=== PATIENT | female | born 1940 | race Caucasian/White ===

== ENCOUNTER 2017-06-03 20:40 | Observation (INO) | payer MEDICARE, OTHER ==
[2017-06-03 22:26] LABS: Troponin I Less than 0.010 ng/mL (< 0.028)
[2017-06-03] MEDS ORDERED: Senokot 8.6 MG TAB PO PRN (23:24)
[2017-06-03] MEDS ORDERED: Mag-Al 1200 mg/1200 mg/30 ML UDCUP PO PRN (23:24)
[2017-06-03] MEDS ORDERED: Zolpidem Tartrate 5 MG TAB PO PRN (23:24)
[2017-06-03] MEDS ORDERED: Ondansetron HCl/PF 4 MG/2 ML Vial IVP PRN (23:24)
[2017-06-03] MEDS ORDERED: Ketorolac Tromethamine 30 MG/ML VIAL IVP PRN (23:24)
[2017-06-03] MEDS ORDERED: Loperamide HCl 2 MG CAP PO PRN (23:24)
[2017-06-03] MEDS ORDERED: Milk Of Magnesia 30 ML UDCUP PO PRN (23:24)
[2017-06-03] MEDS ORDERED: Bisacodyl 10 MG SUPP PR PRN (23:24)
[2017-06-03] MEDS ORDERED: Ondansetron ODT 4 MG TAB PO PRN (23:24)
[2017-06-03] MEDS ORDERED: Acetaminophen 325 MG TAB PO PRN (23:24)
[2017-06-03 23:30] VITALS: BMI 22.1
--- NOTE | 2017-06-03 23:46 | HP ---
PRIMARY CARE PHYSICIAN: Dr. Sonia Echeverria. REASON FOR ADMISSION: Transfer from [facility] for chest pain. HISTORY OF PRESENT ILLNESS: A 76-year-old female who has history of hypertension, anxiety, depressi on, as well as chronic cervical neck pain, who initially went to [facility] for evaluatio n of her increasing neck pain, shoulder pain, and upper back pain. The patient reports that she has a neck pain and she is following Dr. Bailey Donahue in the pain clinic about 3 weeks ago, she had in jection in her cervical spine. She also had a similar injection in the past that helped significant ly, but at this time, injection did not help significantly and she was having upper neck pain and sh oulder pain and upper chest pain, that pain was bothering her and she was taking pain medication and that made her constipated. All these symptoms made her to go to the emergency room for evaluation. Today, she also experienced some mild chest tightness in the substernal area, which was about 3/10 i n intensity. There was no associated nausea, vomiting, diaphoresis, or shortness of breath. She de nied any radiation of pain. There was no relation of chest pain with food, respiration, or activity . At [facility], she was given aspirin, nitropatch, and [place]. She had routine blood te st done including EKG, everything was unremarkable. She was sent to our emergency room for evaluati on to rule out for acute coronary syndrome. This patient does not have any exertional chest pain, palpitation, or dizziness. She denies any ort hopnea, PND, or leg swelling. At [facility], EKG showed normal sinus rhythm without change from previous. She had nons pecific ST-T changes in the anterior leads. Her chest x-ray was unremarkable. REVIEW OF SYSTEMS: The following complete review of systems was negative, unless otherwise mentione d in the HPI or below: Constitutional: Weight loss or gain, ability to conduct usual activities. Skin: Rash, itching. Eyes: Double vision, pain. ENT/Mouth: Nose bleeding, neck stiffness, pain, tenderness. Cardiovascular: Palpitations, dyspnea on exertion, orthopnea. Respiratory: Shortness of breath, wheezing, cough, hemoptysis, fever or night sweats. Gastrointestinal: Poor appetite, abdominal pain, heartburn, nausea, vomiting, constipation, or diar gregor. Genitourinary: Urgency, frequency, dysuria, nocturia. Musculoskeletal: Pain, swelling. Neurologic/Psychiatric: Anxiety, depression. Allergy/Immunologic: Skin rash, bleeding tendency. Please see my HPI for pertinent positives and negatives. All other review of systems are reviewed a nd are negative except as mentioned in the HPI. EMERGENCY ROOM COURSE: Patient is given [place], nitropatch, and aspirin 324 mg at [facility] o. ALLERGIES: The patient is allergic to ANNI INHIBITOR, CODEINE, SULFATE, and SULFA DRUGS. CURRENT HOME MEDICATIONS: Premarin 1.25 mg p.o. daily, amlodipine 10 mg p.o. daily, Lexapro 10 mg p .o. daily, primidone 50 mg daily, tramadol 50 mg every 6 hourly p.r.n. PAST MEDICAL HISTORY: Hypertension and gastroesophageal reflux disease, history of ventricular tach ycardia, history of tremors on the left upper extremity. PAST SURGICAL HISTORY: Bladder surgery, hysterectomy, bladder suspension surgery. PAST PSYCHIATRIC HISTORY: Anxiety and depression. SOCIAL HISTORY: Patient was used to be drinking heavily alcohol, but now a days, she only drinks wi ne on a daily basis. She denies any smoking. She denies any other illicit drug abuse. FAMILY HISTORY: No strong family history of premature coronary artery disease, stroke, or cancer. PHYSICAL EXAMINATION: VITAL SIGNS: Currently, blood pressure 155/60, pulse 70, respiratory rate 17, temperature 98.5, sat uration 96%, weight 62.1 kilograms. GENERAL: Patient is currently alert, awake, in no obvious acute distress. HEENT: Head: Normocephalic, atraumatic. Eyes: Pupils are round, reactive to light. Extraocular muscle intact. ENT: Oropharynx within normal limits. Moist mucous membranes. No oral lesions. N o pharyngeal erythema, no exudate. NECK: Supple. Range of motion is normal. No meningeal signs of irritation. The patient does have muscle tightness in the upper neck as well as upper chest and shoulder discomfort. LUNGS: Clear t o auscultation without any rhonchi or rales. CARDIAC: S1 and S2 regular without any murmur. ABDOMEN: Soft, bowel sounds present, nontender, nondistended. No organomegaly, no mass, no suprapu bic tenderness. BACK EXAMINATION: Unremarkable, no CVA tenderness. EXTREMITIES: Upper extremities, passive movement of all joints are normal. Lower extremities, no e gagandeep, good peripheral pulsation, no calf tenderness. SKIN: No skin rash. HEMATOLOGICAL SYSTEM: No lymphadenopathy. PSYCHIATRIC: Normal affect. SIGNIFICANT LABORATORY DATA AND IMAGIN. EKG based on my review, normal sinus rhythm, nonspecific ST-T changes in the anterolateral leads . 2. Chest x-ray based on my review, no acute cardiopulmonary process. 3. CBC: WBC 9.5, hemoglobin 13.5, and platelets 372. 4. BMP: Sodium 135, potassium 4.1, chloride 100, carbon dioxide 23, BUN 15, creatinine 0.78, gluco se 115, calcium 9.1, magnesium 2.0. 5. LFTs: AST 16, ALT 16, alkaline phosphatase 55, albumin 4.0, total protein 6.9, CK-MB 1.1, tropo michael I is 0.018. BNP is 83.3. ASSESSMENT AND PLAN/IMPRESSION: 1. Chest pain. This patient's chest pain description is atypical. This patient's, most likely rodo n is related with her cervical spine arthritis. She has upper chest pain and she is also complainin g of pain in that area, most likely related with musculoskeletal etiology. This patient also does n ot want to go for any cardiac stress testing and that is why we will not perform that unless if she change her mind in the morning. We will do serial cardiac enzymes only and if her serial cardiac en zymes are negative, then we will consider discharging her home tomorrow. We will check lipid profil e for risk stratification. We will continue with aspirin 325 mg p.o. daily. At this point, the [facility] ient is not interested in going for stress test. We will ask her again in the morning if she is wan gerald to go for a stress test or not. Otherwise, she can be discharged home in the morning if negativ e cardiac enzyme. 2. Neck pain, shoulder pain, upper chest pain, likely her cervical spine problem. The patient is f [facility] neurosurgeon and pain clinic on an outpatient basis. She had a steroid injection in her sp ine. I would control her pain with morphine, and Toradol, and Zanaflex. 3. Hypertension. We will continue amlodipine 10 mg p.o. daily. 4. Benign tremor. We will continue primidone 50 mg p.o. daily. 5. Gastroesophageal reflux disease. We will continue Pepcid 20 mg p.o. b.i.d. 6. Anxiety with depression. We will continue Lexapro 10 mg p.o. daily. 7. Deep venous thrombosis prophylaxis not needed because we are expecting discharge in 24 hours. 8. Gastrointestinal prophylaxis, Pepcid 20 mg p.o. b.i.d. 9. Code status: The patient is FULL CODE. Disposition and plan based on the clinical course, likely within 24 hours. Plan of care discussed w ith the patient in detail.
[2017-06-04 01:35] LABS: Troponin I 0.018 ng/mL (< 0.028)
[2017-06-04] MEDS: HYDROcodone/Acetaminophen 10/325 mg Tablet PO PRN ×2 (03:44→07:45)
[2017-06-04 03:47] VITALS: BP 139/73; TEMP 98.2
[2017-06-04] MEDS ORDERED: Nitroglycerin 2% Ointment 1 INCH/1 GM Packet TOP SCH (06:00)
[2017-06-04] MEDS ORDERED: Aspirin 325 MG TAB PO SCH (09:00)
[2017-06-04] MEDS ORDERED: Escitalopram Oxalate 10 mg Tablet PO SCH (09:00)
[2017-06-04] MEDS ORDERED: tiZANidine HCl 4 MG TAB PO SCH (09:00)
[2017-06-04] MEDS ORDERED: Famotidine 20 MG TAB PO SCH (09:00)
[2017-06-04] MEDS ORDERED: Primidone 50 MG TAB PO SCH (09:00)
[2017-06-04] MEDS ORDERED: Amlodipine 10 MG TAB PO SCH (09:00)
--- NOTE | 2017-06-04 14:16 | DIS ---
DATE OF ADMISSION: 06/03/2017 DATE OF DISCHARGE: 06/04/2017 DISCHARGE DIAGNOSES: 1. Chest pain, atypical, noncardiac. 2. Musculoskeletal pain. 3. Hypertension, stable. 4. Gastroesophageal reflux disease, stable. 5. Anxiety/depression. CONSULTATIONS: None. PERTINENT LABORATORY AND X-RAY FINDINGS: Complete metabolic profile within normal limits. Troponin I negative x3. BNP 83, total cholesterol 185, triglycerides 63, HDL 97, LDL 75. TSH 1.8. CBC wit hin normal limits. Portable chest x-ray dated 06/03/2017, showed no acute cardiopulmonary process. HOSPITAL COURSE: Patient was observed on the telemetry unit after initially presenting with general ized musculoskeletal pain and concern for chest pain. The patient underwent serial cardiac enzymes, which were negative x3 and presented with atypical angina symptoms. Telemetry monitoring showed si nus mechanism without evidence of acute arrhythmia or dysrhythmia. The patient was treated symptoma tically with Toradol, Zanaflex and [place] with some relief of symptoms. No specific evidence to sugg est acute coronary syndrome and patient declined pursuing any further cardiac stress testing. Overa ll, patient remained clinically stable for the remainder of the hospital course and ready for discha rge on 06/04/2017. DISCHARGE MEDICATIONS: 1. Acetaminophen 1000 mg p.o. q.6 hours p.r.n. 2. Lexapro 10 mg 1 tab p.o. daily. 3. Premarin 1.25 mg p.o. daily. 4. Polyethylene glycol 17 grams p.o. daily p.r.n. 5. Primidone 50 mg p.o. daily. 6. Norvasc 10 mg 1 tab p.o. daily. FOLLOWUP: The patient will follow up with Dr. Taras Echeverria within 7 days of discharge. The patien t may also follow with Dr. Donahue for pain management services. CONDITION ON DISCHARGE: Stable. ACTIVITY: Ad janet. DIET: Heart healthy. CODE STATUS: FULL. DISPOSITION: Home on 06/04/2017.
--- NOTE | 2017-07-28 14:41 | EKG ---
Test Reason : Blood Pressure : / mmHG Vent. Rate : 069 BPM Atrial Rate : 069 BPM P-R Int : 174 ms QRS Dur : 070 ms QT Int : 404 ms P-R-T Axes : 063 011 055 degrees QTc Int : 432 ms Normal sinus rhythm Septal infarct , age undetermined Abnormal ECG Confirmed by FADI KYLE, ANTONELLA Dominguez ([id number]), assistant film editor JOB ECHEVERRIA ([id number]) on 07/28/2017 2:41:02 PM Referred By: Confirmed By:ANTONELLA APONTE MD
== END 2017-06-04 12:55 | disposition home or self-care (01) ==
LOC: ERS 20:40 → 2SW 21:50
PROVIDERS: ADMIT Internal Medicine; ATTEND Internal Medicine
DX: R07.2 Precordial pain (principal); M79.1 Myalgia; I10 Essential (primary) hypertension; K21.9 Gastro-esophageal reflux disease without esophagitis; M54.2 Cervicalgia; G25.0 Essential tremor; F41.8 Other specified anxiety disorders; Z79.899 Other long term (current) drug therapy; Z88.5 Allergy status to narcotic agent; Z88.2 Allergy status to sulfonamides; Z88.8 Allergy status to other drugs, medicaments and biological substances; Z90.710 Acquired absence of both cervix and uterus; Z98.890 Other specified postprocedural states
CPT/HCPCS: 36415; 80061; 84484; 93005; 96374; G0378; J1885

== ENCOUNTER 2017-06-06 12:49 | Inpatient (IN) | payer MEDICARE, OTHER ==
[2017-06-06] MEDS ORDERED: Polyethylene Glycol 3350 17 GM Packet PO PRN (14:08)
--- NOTE | 2017-06-06 14:28 | HP ---
PRIMARY CARE PROVIDER: Dr. Farideh Echeverria CHIEF COMPLAINT: Tightness in chest. HISTORY OF PRESENT ILLNESS: The patient was seen in our hospital on 06/03/2017 with chronic should er and neck pain and some tightness in her chest. She was seen and evaluated. Stress test was norm al. She was discharged. She has continued to feel bad and went to the emergency room in [facility]. D-dimer was elevated. CT of the chest revealed bilateral pulmonary emboli. She was referred [facility] for admission. She has no shortness of breath or dizziness. No cough or hemoptysis and no pleuritic chest pain. PAST MEDICAL HISTORY: Pertinent for hypertension, gastroesophageal reflux disease, anxiety, depress ion, tremor. CURRENT MEDICATIONS: Tylenol #3 every 6 hours as needed for pain, Lexapro 10 mg a day, Premarin 1.2 5 mg a day, MiraLax 17 grams in water daily p.r.n., primidone 50 mg a day which the family thinks draper s been stopped, Norvasc 10 mg a day. ALLERGIES: CODEINE despite the fact she is on Tylenol #3, ANNI INHIBITORS, and SULFA DRUGS. PAST SURGICAL HISTORY: Bladder surgery, hysterectomy. FAMILY HISTORY: No strong history of premature coronary artery disease, stroke, cancer or diabetes. SOCIAL HISTORY: She drinks a glass of wine a day. No smoking, no illicit drugs. CODE STATUS: Full code status. Family present. Surrogate decision makers. REVIEW OF SYSTEMS: No headaches, dizziness or fainting. She has had profound malaise and easy fati theodora progressive over the past 8 months. She has a generalized burning sensation that comes across h er entire body periodically. EYES: No double vision, blurred vision, flashing lights. ENT: No ear pain or drainage. No nasal bleeding. No trouble swallowing. CARDIAC: No chest pain, orthopnea or paroxysmal nocturnal dyspnea. RESPIRATORY: No cough, wheezing or asthma. GASTROINTESTINAL: She has constipation on pain medicines. No diarrhea, no abdominal pain, no melen a. No nausea, no vomiting. GENITOURINARY: No hematuria or dysuria or nocturia. MUSCULOSKELETAL: She has chronic pains in her neck, shoulders, also in her legs. No swelling in he r legs or arms. NEUROLOGICAL: No history of strokes, seizures or focal weakness. PSYCHIATRIC: Some history of anxiety, depression, currently on medicines. SKIN: Skin bruises easily. Skin scratches easily, tears easily. No rash. HEME/LYMPH: No tender or swollen lymph nodes in axilla, inguinal or cervical area. PHYSICAL EXAMINATION: GENERAL: The patient is alert, pleasant, cooperative lady. Family at bedside. VITAL SIGNS: Initial blood pressure 166/107, I do not see a follow up. Pulse 77, respirations 20, O2 sat 99 on room air, temperature 97. HEENT: Pupils equal, round with implants. Extraocular movements are intact. Sclerae white. [place] membranes are clear. Nose clear. Oral mucous membranes are wet. Dental hygiene is good. NECK: No jugular venous distention, adenopathy or thyromegaly. . CHEST: Clear to auscultation and percussion with no focal findings. No wheezes, rales, etc. HEART: Regular rate and rhythm. First and second heart sounds clear. No split S2, no murmurs. ABDOMEN: Soft, bowel sounds are normal. There is no hepatosplenomegaly, no mass, no rebound, no br uits. EXTREMITIES: Reveal no cyanosis, clubbing or edema. PULSES: Carotid, radial, femoral, and dorsalis pedis pulses intact and symmetric. SKIN: Warm and dry with actinic changes and some small ecchymoses on her arms. HEME/LYMPH: Revealed no tender or swollen lymph nodes in axilla, inguinal or cervical area. NEUROLOGICAL: Cranial nerves II-XII are intact. Deep tendon reflexes symmetric. She does have a m ild tremor in her left arm and an even milder tremor in her right hand. She has no cogwheeling. No muscle rigidity. LABORATORY: Laboratory done today in [facility] includes CBC with a very mild mi crocytosis. White count 8.3, hemoglobin 13.5, platelet count 339,000. D-dimer was mildly elevated at 0.66. Comp metabolic profile with abnormalities, glucose 115, sodium 135. Cardiac enzymes were normal. Lactic acid was normal. Urine was clear. CT scan of the chest reviewed by myself reveals contrast opacified defects on the right and the left, not in major arteries, 2 noted. EKG: Regular sinus rhythm, no acute ST-T abnormality, some artifactual change, reviewed by myself. ADMITTING DIAGNOSIS: 1. Pulmonary emboli. 2. Hypertension. 3. Chronic pain syndrome. 4. Anxiety, depression. 5. Tremor unknown etiology. PLAN: The patient has been started on subcu Lovenox, will be continued. The patient will be put on bed rest for 24 hours. After 36-48 hours, she will be transitioned to either Eliquis or Xarelto. Home blood pressure medicines will be continued. Because of the clots her Premarin will be held.
[2017-06-06] MEDS ORDERED: Zolpidem Tartrate 5 MG TAB PO PRN (15:41)
[2017-06-06] MEDS ORDERED: Acetaminophen 325 MG TAB PO PRN (15:41)
[2017-06-06] MEDS ORDERED: Ondansetron HCl/PF 4 MG/2 ML Vial IVP PRN (15:41)
[2017-06-06 16:07] LABS: Prothrombin Time 14.1 SEC (12.0-14.7)
[2017-06-06 16:08] LABS: PTT 33.1 SEC (22.9-36.1)
--- NOTE | 2017-06-06 16:31 | ULT ---
BILATERAL LOWER EXTREMITY VENOUS DOPPLER ULTRASOUND: 06/06/17 HISTORY: Pulmonary embolism, elevated D-dimer. TECHNIQUE: Johnson scale ultrasound with color flow and spectral doppler imaging of the deep venous system of the lower extremity is performed bilaterally. FINDINGS: There is good flow, compression, and augmentation noted in the common femoral, femoral, deep femoral , popliteal, posterior tibial and greater saphenous veins. IMPRESSION: No evidence of DVT in either lower extremity. POS: LORI
[2017-06-06 16:33] VITALS: BMI 22.1
[2017-06-06 16:41] LABS: Free T3 2.58 pg/mL (1.71-3.71)
[2017-06-06] MEDS: Enoxaparin Sodium 60 MG/0.6 ML SYRINGE SC SCH (20:08)
[2017-06-06] MEDS ORDERED: Diazepam 5 MG TAB PO PRN (21:09)
[2017-06-06] MEDS ORDERED: Acetaminophen/Codeine 30-300mg Tablet PO PRN (21:09)
[2017-06-06] MEDS ORDERED: Acetaminophen ER (8hr) 650 MG TAB PO PRN (21:09)
[2017-06-06] MEDS ORDERED: cloNIDine HCl 0.1 MG TAB PO PRN (21:09)
[2017-06-06] MEDS ORDERED: SUMAtriptan Succinate 50 MG TAB PO PRN (21:09)
[2017-06-06] MEDS: HYDROcodone/Acetaminophen 10/325 mg Tablet PO PRN (21:49)
[2017-06-07 05:58] LABS: #Eosinphils 0.1 thou/uL (0.0-0.7); #Lymphocytes 3.1 thou/uL (1.20-3.40); #Monocytes 0.5 thou/uL (0.11-0.59); #Neutrophils 3.2 thou/uL (1.40-6.50); %Basophils 0.5 % (0.0-1.0); %Eosinophils 1.5 % (0.0-10.0); %Lymphocytes 44.6 % (21.0-51.0); %Monocytes 7.3 % (0.0-10.0); Mean Platelet Volume 5.8 fL (7.4-10.4); Red Blood Cell (RBC) Count 3.74 mill/uL (4.20-5.40); White Blood Cell (WBC) Count 6.9 thou/uL (4.8-10.8)
[2017-06-07] MEDS: HYDROcodone/Acetaminophen 10/325 mg Tablet PO PRN ×3 (05:59→22:31)
[2017-06-07 06:25] LABS: Anion Gap 9 mmol/L (10-20); BUN (Urea Nitrogen) 10 mg/dL (9.8-20.1); Calc. Creatinine Clearance 66 mL/min (70-130); Calcium 8.7 mg/dL (7.8-10.44); Carbon Dioxide 28 mmol/L (23-31); Chloride 103 mmol/L (98-107); Estimated GFR-MDRD 82
[2017-06-07] MEDS: Hydrochlorothiazide 25 MG TAB PO SCH (08:07)
[2017-06-07] MEDS: Escitalopram Oxalate 10 mg Tablet PO SCH (08:08)
[2017-06-07] MEDS: Enoxaparin Sodium 60 MG/0.6 ML SYRINGE SC SCH (08:09)
[2017-06-07] MEDS: Ibuprofen 600 MG TAB PO SCH ×3 (08:14→20:22)
--- NOTE | 2017-06-07 12:50 | CON ---
DATE OF CONSULTATION: 06/07/2017 REASON FOR CONSULTATION: Pulmonary embolism. HISTORY OF PRESENT ILLNESS: Ms. Mckeon is a 76-year-old female who presented to the hospital initial ly on 06/03/2017 complaining of shoulder, neck, and chest pain. She was seen and evaluated, initial ly underwent a cardiac workup which was negative. She represented to the hospital yesterday stating that her skin felt like it was burning. This led to the performance of a CT pulmonary angiogram wh ich showed a small clot in both chests. She tells me she has never had a pulmonary embolism in the past. On questioning her I could not find any inciting risk for pulmonary emboli other than she is on Premarin. She denies any hemoptysis, she denies any previous history of cancer. PAST MEDICAL HISTORY: 1. Hypertension. 2. Gastroesophageal reflux. 3. Anxiety. 4. Depression. PAST SURGICAL HISTORY: Bladder surgery, hysterectomy. MEDICATIONS PRIOR TO ADMISSION: Tylenol #3, Lexapro, Premarin, MiraLax primidone, Norvasc. ALLERGIES: CODEINE, ANNI INHIBITORS, SULFA DRUGS. SOCIAL HISTORY: Drinks a glass of wine a day. She is a nonsmoker, does not use illicit drugs. REVIEW OF SYSTEMS: She has had no fever, chills, nausea, vomiting, hematemesis, melena, hematochezi a, hematuria, or dysuria. PHYSICAL EXAMINATION: VITAL SIGNS: Temperature 97.7, pulse 65, respirations 18, O2 saturation 98%, blood pressure 165/78. GENERAL: She is awake, alert, in no distress. HEENT: Unremarkable. NECK: Without adenopathy, JVD, or bruits. LUNGS: Clear to auscultation without wheezing or rhonchi. CARDIAC: S1, S2 regular, without murmur or gallop. ABDOMEN: Soft, nontender, nondistended. No hepatosplenomegaly. EXTREMITIES: Without clubbing, cyanosis, or edema. LABORATORY DATA: Sodium 136, potassium 3.5, chloride 103, CO2 28, BUN 10, creatinine 0.7, glucose 8 9. INR 1.1. White blood cell count 6.9, hemoglobin 12, hematocrit 37, platelet count 352. CT pulm onary angiogram was reviewed. Also venogram was reviewed, showed no evidence of clot. ASSESSMENT: Small pulmonary emboli, only risk factor being Premarin use. RECOMMENDATIONS: 1. Anticoagulation with Xarelto, Eliquis or Coumadin for at least 3 months. I would like to see he r in the office in 3 months and revaluate her and perhaps perform a repeat CT pulmonary angiogram at that time. 2. We should consider stopping her Premarin if at all possible. This may need to be done in conjun ction with Dr. Echeverria. If for some reason she cannot stop the Premarin, then consideration will be given to continue her on lifelong low dose anticoagulation with the lowest dose of Eliquis.
--- NOTE | 2017-06-07 15:38 | PDOC.PN ---
- Subjective Encounter Start Date: 06/07/17 Encounter Start Time: 11:40 Subjective: no sob or chest pain -: has gen body aches -: had epidural shot to lumbar spine area 3 wks back - Objective Resuscitation Status: Resuscitation Status FULL:Full Resuscitation MAR Reviewed: Yes Vital Signs & Weight: Vital Signs (12 hours) Temp Pulse Resp BP Pulse Ox 06/07/17 08:00 97.7 F 65 18 165/78 H 98 06/07/17 04:00 97.8 F 68 16 170/74 H 98 Weight Weight 137 lb 1.6 oz Result Diagrams: 06/07/17 05:37 06/07/17 05:37 Phys Exam - Physical Examination HEENT: PERRLA, moist MMs Neck: no JVD, supple Respiratory: no wheezing, no rales Cardiovascular: RRR, no significant murmur Gastrointestinal: soft, non-tender, positive bowel sounds Musculoskeletal: no edema, pulses present Neurological: non-focal, moves all 4 limbs Psychiatric: A&O x 3 Dx/Plan (1) Pulmonary embolism Code(s): I26.99 - OTHER PULMONARY EMBOLISM WITHOUT ACUTE COR PULMONALE Status : Acute Qualifiers: Chronicity: acute (2) Chronic back pain Code(s): M54.9 - DORSALGIA, UNSPECIFIED; G89.29 - OTHER CHRONIC PAIN Status: Chronic Qualifiers: Back pain location: low back pain Comment: had epidural shot 3 weeks back by (3) HTN (hypertension) Code(s): I10 - ESSENTIAL (PRIMARY) HYPERTENSION Status: Chronic Qualifiers: Hypertension type: essential hypertension Qualified Code(s): I10 - Essential (primary) hypertension (4) Depression Code(s): F32.9 - MAJOR DEPRESSIVE DISORDER, SINGLE EPISODE, UNSPECIFIED Status : Chronic Qualifiers: Depression Type: major depressive disorder Psychotic features: without psychotic features - Plan will start on eliquis -: dc lovenox in am -: to f/u with in 3 months -: outpt w/u for gen aches, low back pain -: d/w * . Review of Systems - Medications/Allergies Allergies/Adverse Reactions: Allergies Allergy/AdvReac Type Severity Reaction Status Date / Time ANNI Inhibitors Allergy Verified 06/06/17 15:50 Sulfa (Sulfonamide Allergy Verified 06/06/17 15:50 Antibiotics) Medications: Current Medications Acetaminophen (Tylenol) 650 mg PO Q4H PRN PRN Reason: Headache/Fever or Pain Acetaminophen (Tylenol Er (8hr Arthritis Pain)) 650 mg PO Q4H PRN PRN Reason: Pain Acetaminophen/Codeine Phosphate (Tylenol #3) 1 tab PO Q6H PRN PRN Reason: Moderate Pain (4-6) Hydrocodone Bitart/Acetaminophen ([place] 10/325) 1 tab PO Q6H PRN PRN Reason: Severe Pain (7-10) Last Admin: 06/07/17 11:29 Dose: 1 tab Amlodipine Besylate (Norvasc) 10 mg PO DAILY [facility] Last Admin: 06/07/17 08:08 Dose: 10 mg Apixaban (Eliquis) 10 mg PO BID [facility] Cholecalciferol (Vitamin D3) 3,000 units PO DAILY [facility] Last Admin: 06/07/17 08:08 Dose: 3,000 units Clonidine HCl (Catapres) 0.1 mg PO TIDPRN PRN PRN Reason: Hypertension Diazepam (Valium) 5 mg PO DAILYPRN PRN PRN Reason: Anxiety Last Admin: 06/06/17 22:39 Dose: 5 mg Enoxaparin Sodium (Lovenox) 60 mg SC 0900,2100 [facility] Stop: 06/08/17 07:00 Last Admin: 06/07/17 08:09 Dose: 60 mg Escitalopram Oxalate (Lexapro) 10 mg PO DAILY [facility] Last Admin: 06/07/17 08:08 Dose: 10 mg Hydrochlorothiazide (Hydrochlorothiazide) 25 mg PO DAILY [facility] Last Admin: 06/07/17 08:07 Dose: 25 mg Ibuprofen (Motrin) 600 mg PO TID [facility] Last Admin: 06/07/17 14:02 Dose: 600 mg Ondansetron HCl (Zofran) 4 mg IVP Q6H PRN PRN Reason: Nausea/Vomiting Polyethylene Glycol (Miralax) 17 gm PO DAILY PRN PRN Reason: Constipation Sumatriptan Succinate (Imitrex) 100 mg PO DAILYPRN PRN PRN Reason: Headache Zolpidem Tartrate (Ambien) 5 mg PO HSPRN PRN PRN Reason: Insomnia
[2017-06-07] MEDS ORDERED: Lidocaine 5% Patch TD SCH (18:00)
[2017-06-07] MEDS: Apixaban 5 MG TAB PO SCH (20:21)
[2017-06-08] MEDS: HYDROcodone/Acetaminophen 10/325 mg Tablet PO PRN (03:59)
[2017-06-08] MEDS ORDERED: Lidocaine Patch Removal 1 EACH TOP SCH ×2 (06:00→21:00)
[2017-06-08] MEDS ORDERED: Ketorolac Tromethamine 30 MG/ML VIAL IVP PRN (06:19)
[2017-06-08] MEDS ORDERED: Ketorolac Tromethamine 30 MG/ML VIAL IVP SCH (06:30)
[2017-06-08] MEDS: Apixaban 5 MG TAB PO SCH (08:13)
[2017-06-08] MEDS: Hydrochlorothiazide 25 MG TAB PO SCH (08:13)
[2017-06-08] MEDS: Escitalopram Oxalate 10 mg Tablet PO SCH (08:14)
[2017-06-08] MEDS: Ibuprofen 600 MG TAB PO SCH (08:15)
--- NOTE | 2017-06-08 09:16 | PRG ---
DATE OF SERVICE: 06/08/2017 She continues to complain of back pain. Her breathing is okay. PHYSICAL EXAMINATION: VITAL SIGNS: Temperature 97.9, pulse 64, respirations 16, O2 sat 98%, blood pressure 133/77. HEENT: Unremarkable. NECK: No JVD. CHEST: Clear. CARDIAC: S1 and S2 regular. ABDOMEN: Soft. EXTREMITIES: No edema. ASSESSMENT: Bilateral pulmonary emboli. PLAN: It is okay to go home on Vand[place]. I have asked her to follow up in 3 months.
[2017-06-08] MEDS: Lidocaine 5% Patch TD SCH ×2 (10:55→11:37)
[2017-06-08 11:22] VITALS: BP 127/75; TEMP 98.2
--- NOTE | 2017-06-08 17:06 | PDOC.PN ---
- Subjective Encounter Start Date: 06/08/17 Encounter Start Time: 08:50 Subjective: no chest pain or sob -: has generalized aches - Objective Resuscitation Status: Resuscitation Status FULL:Full Resuscitation MAR Reviewed: Yes Vital Signs & Weight: Vital Signs (12 hours) Temp Pulse Resp BP Pulse Ox 06/08/17 11:21 98.2 F 76 16 127/75 97 06/08/17 08:13 74 06/08/17 08:00 97.9 F 74 16 98 06/08/17 07:13 97.9 F 74 16 133/77 98 Weight Weight 137 lb 1.6 oz I&O: 06/07/17 06/08/17 06/09/17 06:59 06:59 06:59 Intake Total 240 Balance 240 Result Diagrams: 06/07/17 05:37 06/07/17 05:37 Phys Exam - Physical Examination HEENT: PERRLA, moist MMs Neck: no JVD, supple Respiratory: no wheezing, no rales Cardiovascular: RRR, no significant murmur Gastrointestinal: soft, non-tender, positive bowel sounds Musculoskeletal: no edema, pulses present Neurological: non-focal, moves all 4 limbs Psychiatric: A&O x 3 Dx/Plan (1) Pulmonary embolism Code(s): I26.99 - OTHER PULMONARY EMBOLISM WITHOUT ACUTE COR PULMONALE Status : Acute Qualifiers: Chronicity: acute (2) Chronic back pain Code(s): M54.9 - DORSALGIA, UNSPECIFIED; G89.29 - OTHER CHRONIC PAIN Status: Chronic Qualifiers: Back pain location: low back pain Comment: had epidural shot 3 weeks back by (3) HTN (hypertension) Code(s): I10 - ESSENTIAL (PRIMARY) HYPERTENSION Status: Chronic Qualifiers: Hypertension type: essential hypertension Qualified Code(s): I10 - Essential (primary) hypertension (4) Depression Code(s): F32.9 - MAJOR DEPRESSIVE DISORDER, SINGLE EPISODE, UNSPECIFIED Status : Chronic Qualifiers: Depression Type: major depressive disorder Psychotic features: without psychotic features - Plan on eliquis -: dc lovenox -: may dc home -: to f/u with in 3 months -: will need outpt w/u for her chronic pain/f/u * .
--- NOTE | 2017-06-08 20:06 | DIS ---
DATE OF ADMISSION: 06/06/2017 DATE OF DISCHARGE: 06/08/2017 DISCHARGE DISPOSITION: To home. PRIMARY DISCHARGE DIAGNOSIS: Pulmonary embolus. SECONDARY DISCHARGE DIAGNOSES: Chronic back pain, hypertension, depression. PROCEDURES DONE DURING HOSPITALIZATION: The patient has had an ultrasound venous Doppler of lower e xtremities, which showed no evidence of DVT. CT angio chest showed PE. Cervical MRI showed degener ative changes of the C-spine, thoracic MRI showed no significant abnormalities. Discharge H\T\H was 12 and 37, platelet count was 352. TSH 1.31, free T4 1.0, free T3 2.58. Discharge BUN and creatin ine are 10 and 0.6. DISCHARGE MEDICATIONS: Eliquis 10 mg p.o. twice daily for another 6 days, then 5 mg p.o. twice toribio y for the next 83 days to complete a 3-month course of Eliquis for PE, Lexapro 10 mg p.o. daily, Nor co p.r.n. for pain, hydrochlorothiazide 25 mg p.o. daily, lidocaine 5% transdermal patch once daily, MiraLax 17 grams daily, Norvasc 10 mg daily. ALLERGIES: Allergic to ANNI INHIBITORS and SULFA. DISCHARGE PLAN: Patient to follow up with primary care physician in 1 week. BRIEF COURSE DURING HOSPITALIZATION: The patient initially got admitted with complaints of chest pa in and generalized aches. She has had a CT angio chest done, which showed small PE. She was placed on anticoagulation. Patient was switched over to Eliquis for 24 hours. She has remained hemodynam ically stable. She has had consultation with Dr. Buckley for Pulmonology. The patient remained hem odynamically stable with no bleeding as such. She needs to follow up with primary care physician in 1 week and also needs to follow up with her pain specialist, Dr. Donahue. Please see a face-to-f anni documentation on [employer] for the day of discharge.
== END 2017-06-08 11:55 | disposition home or self-care (01) | DRG 176 ==
LOC: ERS 12:49 → T4-B 15:39
PROVIDERS: ADMIT Internal Medicine; ATTEND Internal Medicine
DX: I26.99 Other pulmonary embolism without acute cor pulmonale (principal); I10 Essential (primary) hypertension; G89.4 Chronic pain syndrome; F41.9 Anxiety disorder, unspecified; F32.9 Major depressive disorder, single episode, unspecified; R25.1 Tremor, unspecified; K21.9 Gastro-esophageal reflux disease without esophagitis; G89.29 Other chronic pain; M54.9 Dorsalgia, unspecified; Z79.890 Hormone replacement therapy; Z88.2 Allergy status to sulfonamides; Z88.8 Allergy status to other drugs, medicaments and biological substances
CPT/HCPCS: 36415; 80048; 80061; 82607; 84439; 84443; 84481; 84484; 85025; 85610; 85730; 93005; 93970; 96374; 99285; G0378; J1650; J1885

== ENCOUNTER 2017-06-08 14:45 | Outpatient (CLI) | payer MEDICARE, OTHER ==
--- NOTE | 2017-06-08 15:23 | RAD ---
FIVE VIEWS OF THE CERVICAL SPINE: Comparison: None. History: Neck and upper back pain radiating to both shoulders and arms for a few years. FINDINGS: AP, lateral, open mouth odontoid and flexion and extension views of the cervical spine performed. The C5 vertebral body is retro displaced in relation to the C4 and C6 vertebral bodies. The C5-6 int ervertebral discs is narrowed and small surrounding osteophytes are seen. Alignment is unchanged wit h flexion and extension. No prevertebral soft tissue swelling is seen. IMPRESSION: Moderate degenerative changes in the mid cervical spine with unchanged alignment with bending. POS: LORI
--- NOTE | 2017-06-08 16:45 | MRI ---
MRI THORACIC SPINE WITHOUT CONTRAST: Date: 06/08/17 HISTORY: Thoracic radiculitis, upper back pain radiating down both shoulders and arms. FINDINGS: Vertebral body height and marrow signal are fairly well maintained. There is a focal area of increas ed T1 and T2 signal in the T4 vertebral body consistent with hemangioma. No focal disc herniation, c entral canal stenosis, or significant neural foraminal stenosis is seen. There are degenerative marti ges of the costovertebral joints. The thoracic spinal cord demonstrates normal course, caliber, and signal. There is a small disc protrusion at L1-L2 level. The conus medullaris also ends at L1-L2 lev el. IMPRESSION: No significant abnormalities are seen. POS: LORI
--- NOTE | 2017-06-08 16:59 | MRI ---
MRI OF THE CERVICAL SPINE WITHOUT CONTRAST 06/08/17 COMPARISON: Cervical spine radiograph 06/08/17. HISTORY: Upper neck and back pain that radiates down both shoulders and arms for two years. This has gotten w orse over the last past month. TECHNIQUE: Multiplanar and multisequence MR images were obtained of the cervical spine without contrast. FINDINGS: There is partial fusion of the C6 and C7 vertebral bodies. Generalized disc desiccation is seen. The vertebral bodies demonstrate normal height without evidence of fracture. There is retropulsion of t he C5 vertebral body in relation to the vertebral bodies above and below this level. The visualized cord demonstrates normal signal throughout. The prevertebral and paraspinal soft tiss ues are unremarkable. The craniocervical junction is unremarkable. C2-3: Unremarkable. C3-4: A small disc osteophyte complex is seen. No posterior facet arthrosis. No central canal stenos is. Mild right neural foraminal stenosis. No left neural foraminal stenosis. C4-5: A small disc osteophyte complex is seen. Mild bilateral posterior facet arthrosis. No central canal stenosis. Mild bilateral neural foraminal stenosis. C5-6: A moderate disc osteophyte complex is seen. Mild bilateral posterior facet arthrosis. Mild maira tral canal stenosis. Moderate left and mild right neural foraminal stenosis. C6-7: Unremarkable. C7-T1: No significant bulge or protrusion. Moderate left posterior facet arthrosis. No right posteri or facet arthrosis. No central canal stenosis. Mild left neural foraminal stenosis. IMPRESSION: Degenerative changes of the cervical spine as above. POS: [facility]
== END 2017-06-08 14:46 | disposition home or self-care (01) ==
LOC: SCSMRI 14:45
PROVIDERS: ATTEND Nurse Practitioner Family
DX: M47.22 Other spondylosis with radiculopathy, cervical region (principal); M54.14 Radiculopathy, thoracic region
CPT/HCPCS: 72050; 72141; 72146

== ENCOUNTER 2017-09-25 12:34 | Outpatient (CLI) | payer MEDICARE, OTHER ==
--- NOTE | 2017-09-25 13:47 | RAD ---
CHEST TWO VIEWS: History: Dyspnea. FINDINGS: No comparison. The cardiac silhouette and pulmonary vasculature are unremarkable. Calcified granuloma ta are consistent with healed granulomatous disease. There is no confluent airspace consolidation, pn eumothorax, or pleural fluid evident. Mediastinum is midline with aortic calcification. IMPRESSION: 1. Atherosclerosis. POS: [facility]
== END 2017-09-25 12:35 | disposition home or self-care (01) ==
LOC: RAD 12:34
PROVIDERS: ATTEND Internal Medicine Critical Care Medicine
DX: R06.00 Dyspnea, unspecified (principal); I70.90 Unspecified atherosclerosis
CPT/HCPCS: 71046

== ENCOUNTER 2021-03-16 12:49 | Outpatient (CLI) | payer MEDICARE, OTHER | END 2021-03-16 12:50 | disposition home or self-care (01) | LOC: SCSMRI 12:49 | PROVIDERS: ATTEND Nurse Practitioner Family | DX: M47.26 Other spondylosis with radiculopathy, lumbar region (principal); M41.9 Scoliosis, unspecified | CPT/HCPCS: 72148 ==

== ENCOUNTER 2023-10-29 14:03 | Inpatient (IN) | payer MEDICARE, OTHER ==
[2023-10-29] MEDS ORDERED: Ondansetron ODT 4 MG TAB PO PRN (16:48)
[2023-10-29] MEDS: Metoprolol Tartrate 50 MG TAB PO SCH (17:55)
[2023-10-29 18:12] VITALS: BMI 21.4
[2023-10-29] MEDS: dilTIAZem 125 MG in Sodium Chloride 0.9% 100 ML IVPB SCH (18:15)
[2023-10-29 18:24] LABS: Phosphorus 3.3 mg/dL (2.3-4.7)
[2023-10-29 18:26] LABS: Magnesium 2.3 mg/dL (1.6-2.6)
[2023-10-29] MEDS ORDERED: Metoprolol Tartrate 50 MG TAB PO SCH (21:00)
[2023-10-29] MEDS: Carbidopa/Levodopa 25-100 mg Tablet PO SCH (23:36)
[2023-10-29] MEDS: Apixaban 5 MG TAB PO SCH (23:37)
[2023-10-29] MEDS: Gabapentin 300 MG CAP PO SCH (23:37)
[2023-10-29] MEDS: Flecainide 50 MG TAB PO SCH (23:38)
[2023-10-29] MEDS: Acetaminophen 325 MG TAB PO PRN (23:53)
[2023-10-30] MEDS: dilTIAZem 30 MG TAB PO SCH (02:08)
[2023-10-30 04:36] LABS: #Basophils 0.1 thou/uL (0.0-0.2); #Eosinphils 0.1 thou/uL (0.0-0.7); #Monocytes 0.6 thou/uL (0.11-0.59); #Neutrophils 4.1 thou/uL (1.40-6.50); %Basophils 0.6 % (0.0-1.0); %Eosinophils 1.7 % (0.0-10.0); %Lymphocytes 38.2 % (21.0-51.0); %Monocytes 7.1 % (0.0-10.0); %Neutrophils 52.3 % (42.0-75.0); Hematocrit 38.5 % (36.0-47.0); Hemoglobin 12.5 g/dL (12.0-16.0); Mean Corpuscular HGB CONC 32.5 g/dL (32.0-36.0); Mean Corpuscular Hemoglobin 31.5 pg (27.0-31.0); Mean Platelet Volume 9.1 fL (7.4-10.4); Platelet Count 310 10x3/uL (130-400); RBC Distribution Width 12.3 % (11.5-14.5); Red Blood Cell (RBC) Count 3.97 mill/uL (4.20-5.40); White Blood Cell (WBC) Count 7.8 10x3/uL (4.8-10.8)
[2023-10-30 04:54] LABS: Phosphorus 3.8 mg/dL (2.3-4.7)
[2023-10-30 05:00] LABS: ALT (SGPT) Less than 7 U/L (8-55); AST (SGOT) 12 U/L (5-34); Albumin 3.6 g/dL (3.4-4.8); Alkaline Phosphatase 73 U/L (40-110); Anion Gap 15 mmol/L (10-20); BUN (Urea Nitrogen) 22 mg/dL (9.8-20.1); Bilirubin, Total 0.6 mg/dL (0.2-1.2); Calc. Creatinine Clearance 46 mL/min (70-130); Calcium 8.6 mg/dL (7.8-10.44); Carbon Dioxide 21 mmol/L (23-31); Chloride 108 mmol/L (98-107); Estimated GFR 70; Globulin 2.3 g/dL (2.4-3.5); Glucose 105 mg/dL (83-110); Magnesium 2.1 mg/dL (1.6-2.6); Potassium 3.9 mmol/L (3.5-5.1); Protein, Total 5.9 g/dL (5.8-8.1); Sodium 140 mmol/L (136-145)
[2023-10-30] MEDS: Amlodipine 5 MG TAB PO SCH (08:32)
[2023-10-30] MEDS: Aspirin Chewable 81 MG TAB PO SCH (08:32)
[2023-10-30] MEDS: Apixaban 5 MG TAB PO SCH (08:32)
[2023-10-30] MEDS: DULoxetine 60 MG CAP PO SCH (08:33)
[2023-10-30] MEDS: dilTIAZem CD 180 MG CAP PO SCH (08:34)
[2023-10-30] MEDS ORDERED: Metoprolol Tartrate 50 MG TAB PO SCH (09:00)
[2023-10-30] MEDS ORDERED: Enoxaparin 40 MG (0.4 mL) SYRINGE SC SCH (09:00)
[2023-10-31 05:51] LABS: #Basophils 0.1 thou/uL (0.0-0.2); #Eosinphils 0.2 thou/uL (0.0-0.7); #Monocytes 0.6 thou/uL (0.11-0.59); #Neutrophils 4.6 thou/uL (1.40-6.50); %Basophils 0.9 % (0.0-1.0); %Eosinophils 2.6 % (0.0-10.0); %Monocytes 7.4 % (0.0-10.0); %Neutrophils 55.7 % (42.0-75.0); Hematocrit 36.9 % (36.0-47.0); Hemoglobin 11.9 g/dL (12.0-16.0); Mean Corpuscular HGB CONC 32.2 g/dL (32.0-36.0); Mean Corpuscular Hemoglobin 31.4 pg (27.0-31.0); Mean Corpuscular Volume 97.4 fl (78.0-98.0); Mean Platelet Volume 9.4 fL (7.4-10.4); Platelet Count 313 10x3/uL (130-400); RBC Distribution Width 12.3 % (11.5-14.5); Red Blood Cell (RBC) Count 3.79 mill/uL (4.20-5.40); White Blood Cell (WBC) Count 8.2 10x3/uL (4.8-10.8)
[2023-10-31 06:21] LABS: ALT (SGPT) Less than 7 U/L (8-55); AST (SGOT) 18 U/L (5-34); Albumin 3.7 g/dL (3.4-4.8); Alkaline Phosphatase 74 U/L (40-110); Anion Gap 12 mmol/L (10-20); BUN (Urea Nitrogen) 20 mg/dL (9.8-20.1); Bilirubin, Total 0.7 mg/dL (0.2-1.2); Calc. Creatinine Clearance 47 mL/min (70-130); Calcium 8.9 mg/dL (7.8-10.44); Carbon Dioxide 24 mmol/L (23-31); Chloride 107 mmol/L (98-107); Estimated GFR 72; Globulin 2.2 g/dL (2.4-3.5); Glucose 106 mg/dL (83-110); Phosphorus 4.2 mg/dL (2.3-4.7); Potassium 3.8 mmol/L (3.5-5.1); Protein, Total 5.9 g/dL (5.8-8.1); Sodium 139 mmol/L (136-145)
[2023-10-31] MEDS: dilTIAZem CD 120 MG CAP PO SCH (08:35)
[2023-10-31 12:33] VITALS: TEMP 98.3
[2023-10-31 13:51] VITALS: BP 122/59
== END 2023-10-31 15:09 | disposition home or self-care (01) | DRG 310 ==
LOC: 2SW 14:43 → OBSVTOIN 16:48
PROVIDERS: ADMIT Student in an Organized Health Care Education/Training Program; ATTEND Student in an Organized Health Care Education/Training Program
DX: I48.91 Unspecified atrial fibrillation (principal); I10 Essential (primary) hypertension; M54.16 Radiculopathy, lumbar region; Z66 Do not resuscitate; F41.8 Other specified anxiety disorders; F32.9 Major depressive disorder, single episode, unspecified; Z90.710 Acquired absence of both cervix and uterus; Z88.2 Allergy status to sulfonamides
CPT/HCPCS: 36415; 80053; 83735; 84100; 85025; G0378

== ENCOUNTER 2024-05-27 11:17 | Day surgery (SDC) | payer MEDICARE, OTHER ==
[2024-05-26 10:11] VITALS: BMI 20.1
[2024-05-27] MEDS ORDERED: PHENYLephrine 2.5% Ophth Soln 15 ml Bottle ONE (11:43)
[2024-05-27] MEDS ORDERED: Phenylephrine 2.5% Ophth Soln 5 ML BOT EA EYE SCH (11:45)
[2024-05-27] MEDS ORDERED: PHENYLephrine 2.5% Ophth Soln 15 ml Bottle EA EYE SCH (11:45)
[2024-05-27] MEDS ORDERED: Tropicamide 1% 15 ML BOTTLE OP SCH (11:45)
== END 2024-05-27 12:45 | disposition home or self-care (01) ==
LOC: SDC 11:17
PROVIDERS: ATTEND Ophthalmology
PROC: 085K3ZZ Destruction of Left Lens, Percutaneous Approach (ICD-10-PCS; principal; 2024-05-27)
DX: H26.492 Other secondary cataract, left eye (principal); Z88.2 Allergy status to sulfonamides